=== PATIENT | male | born 1985 | race Caucasian/White ===

== ENCOUNTER → 2018-01-08 | Day surgery (SDC) | payer OTHER ==
[2017-12-18 14:13] VITALS: Ht 167.6 cm; Wt 80.7 kg
--- NOTE | 2017-12-18 14:46 | PAT Medication Instructions ---
Service Date Dec 18, 2017. Current Home Medication List Albuterol Hfa (Ventolin Hfa), 1-2 PUFFS INH UD PRN for PRN Famotidine (Pepcid), 20 MG PO QAM Lamotrigine (Lamictal), 1 TAB PO BID Meloxicam (Mobic), 10 MG PO QPM Pantoprazole (Protonix), 40 MG PO QAM [Vibryd], 40 MG PO QAM Medication Instructions For Your Scheduled Surgery -Contact your surgeon for instructions for: Meloxicam (Mobic), 10 MG PO QPM - Take the following medications the morning of surgery with a sip of water: [Vibryd], 40 MG PO QAM Pantoprazole (Protonix), 40 MG PO QAM Lamotrigine (Lamictal), 1 TAB PO BID Albuterol Hfa (Ventolin Hfa), 1-2 PUFFS INH UD PRN for PRN Famotidine (Pepcid), 20 MG PO QAM - Take the following medications as scheduled the night before surgery: Lamotrigine (Lamictal), 1 TAB PO BID Albuterol Hfa (Ventolin Hfa), 1-2 PUFFS INH UD PRN for PRN Famotidine (Pepcid), 20 MG PO QAM If you have any questions please call us at [phone] or [phone] or [phone]
[2017-12-18 16:28] LABS: BASO ABS # 0.06 K/uL (0-0.2); EOS % 3.2 %; EOS ABS # 0.19 K/uL (0-0.5); HEMATOCRIT 42.6 % (37-47); HEMOGLOBIN 14.1 g/dL (12.0-16.0); IG# 0.01 K/uL (0.00-0.02); LYMPH % 30.3 %; LYMPH ABS # 1.77 K/uL (1.2-3.4); MEAN CELL VOLUME 78.6 fL (80-100); MEAN CORPUSCULAR HGB CONC 33.1 g/dl (32-36); MEAN PLATELET VOLUME 9.8 fL (7.4-10.4); MONO % 10.9 %; MONO ABS # 0.64 K/uL (0.11-0.59); NEUT % 54.4 %; NEUT ABS # 3.18 K/uL (1.4-6.5); PLATELET COUNT 203 K/uL (130-400); RED CELL DISTRIBUTION WIDTH CV 14.3 % (11.5-14.5); WHITE BLOOD COUNT 5.85 K/uL (4.8-10.8)
[2017-12-18 16:36] LABS: CREATININE 0.85 mg/dl (0.60-1.20)
[~2018-01-08] VITALS: Ht 167.6 cm; Wt 80.7 kg
[~2018-01-08] MED LIST: BUPIVACAINE 0.5 % 5 MG/1 ML MPF 30ML VIAL ONE; CEFAZOLIN 2000MG IV PUSH 15 ML IV SCH; CLINDAMYCIN 600 MG/54 ML D5W IV SCH; CLINDAMYCIN PHOS 150 MG/ML 2 ML VIAL ONE; FAMO20TA11 PO; FENTANYL CITRATE INJ 50 MCG/1 ML 2 ML VIAL ONE; HYDR-3419 PO; HYDROCODONE/ACETAMIN 5/325MG TAB ONE; KETAMINE HCL INJ 50 MG/ML 10 ML VIAL ONE; LACTATED RINGER'S 1000ML 1,000 ML IV SCH; LIDOCAINE/EPINEPHRINE 1% 20 ML VIAL ONE; LMC/150 PO; MELO7.5T5 PO; MIDAZOLAM HCL 1 MG/ML 2ML VIAL ONE; NURSING VERBAL MED ORDER ONE; PANT40TA PO; PROPOFOL IV EMULSION 10 MG/ML 20 ML VIAL IV ONE; VIBRYD PO; VNTHFA/IN INH
--- NOTE | 2018-01-08 10:08 | History & Physical Bridge - [place] ---
H&P Re-Evaluation Bridge Note: Patient presents for right hallux valgus correction. I have examined the patient , reviewed the History & Physical and in the interval since the performance of the History & Physical I have noted the following changes of clinical significance: No changes noted
--- NOTE | 2018-01-08 10:11 | Discharge Instructions-SurgCtr ---
Discharge Instructions Date of Service Jan 08, 2018. Visit Reason for Visit: Right Foot Hallux Valgus Discharge Discharge Diagnosis / Problem: hallux valgus right foot Discharge Goals Goal(s): Decrease discomfort Activity Recommendations Activity Limitations: as noted below Lifting Limitations: no more than 5 pounds Exercise/Sports Limitations: none Shower/Bathe: keep incision dry Driving or Machine Use: no driving Weightbearing Status: Right weightbearing (as tolerated) Anesthesia . Post Anesthesia Instructions: If you have had General Anesthesia or IV Sedation: * Do not drive today. * Resume driving when surgeon permits. * Do not make important decisions or sign legal documents today. * Call surgeon for: 1. Temperature elevations greater than 101 degrees F. 2. Uncontrollable pain. 3. Excessive bleeding. 4. Persistent nausea and vomiting. 5. Medication intolerance (nausea, vomiting or rash). * For nausea and vomiting use only clear liquids such as: tea, soda, bouillon until nausea subsides, then gradually increase diet as tolerated. * If you have any concerns or questions, call your surgeon's office. If physician is unavailable and it is an emergency, call 911 or go to the nearest emergency room. . Diet Recommendations Home Diet: no limitations Pending Studies Studies pending at discharge: no Medical Emergencies . Who to Call and When: Medical Emergencies: If at any time you feel your situation is an emergency, please call 911 immediately. . Non-Emergent Contact Non-Emergency issues call your: Surgeon Call Non-Emergent contact if: temperature is above 101, your pain is concerning you, wound has increased drainage, wound has increased redness, wound has increased pain, you have any medication questions . . "Provider Documentation" section prepared by Jomar Ro. .
--- NOTE | 2018-01-08 11:17 | [facility] Post Operative Brief Note ---
Immediate Operative Summary Operative Date Jan 08, 2018. Pre-Operative Diagnosis Hallux Valgus Post-Operative Diagnosis Hallux Valgus Procedure(s) Performed DMO for correction hallux valgus Surgeon Jomar Ro DPM Pipe Processor Surgeon(s) None Estimated Blood Loss Minimal Findings Consistent with Post-Op Diagnosis Specimens None Drains None Anesthesia Type General Complication(s) none Disposition Accompanied Pt To Recovery: no Disposition: Recovery Room / PACU
--- NOTE | 2018-01-08 11:34 | Anesthesia Progress Nt - [facility] ---
Anesthesia Post Op Note Date & Time Jan 08, 2018 at 11:34 Vital Signs Pain Intensity: 0 Vital Signs Past 12 Hours Date Time Temp Pulse Resp B/P (MAP) Pulse Ox O2 Delivery O2 Flow Rate FiO2 01/08/18 11:26 73 12 98 01/08/18 11:26 74 12 01/08/18 11:25 114/50 01/08/18 11:21 116/53 01/08/18 11:21 36.9 75 16 116/53 100 Trach Collar 10 01/08/18 08:30 36.9 94 16 131/78 (95) 96 Room Air Notes Mental Status: alert / awake / arousable, participated in evaluation Pt Amnestic to Procedure: Yes Nausea / Vomiting: adequately controlled Pain: adequately controlled Airway Patency, RR, SpO2: stable & adequate BP & HR: stable & adequate Hydration State: stable & adequate Anesthetic Complications: no major complications apparent
[2018-01-08 12:12] VITALS: TEMP 36.7
[2018-01-08 12:43] VITALS: BP 119/75; PULSE 71; O2SAT 95
--- NOTE | 2018-01-09 15:00 | DIAGNOSTIC IMAGING REPORT ---
SURGICNTR FOOT, 2 VIEWS CLINICAL HISTORY: RIGHT FOOT SURGICAL CORRECTION BUNION COMPARISON STUDY: None. FLUOROSCOPY TIME: 18 seconds.. FINDINGS: 4 fluoroscopic spot images of the right foot. Single screw through the osteotomy at the neck of the first metatarsal. The hardware appears intact. IMPRESSION: Fluoroscopy provided for bunion correction within the right foot. Electronically signed by: Alverto Glaser M.D. 01/09/2018 2:58 PM Dictated Date/Time: 01/09/2018 2:54 PM
--- NOTE | 2018-01-12 17:29 | [facility] Operative Report ---
Operative Report Operative Date Jan 12, 2018. Pre-Operative Diagnosis Hallux Valgus Right Post-Operative Diagnosis Right Hallux Valgus Procedure(s) Performed Right DMO for correction hallux valgus Surgeon Jomar Ro DPM Wallpaper Inspector And Shipper Surgeon(s) None Estimated Blood Loss Minimal Specimens None Drains None Anesthesia Type General Complication(s) none Disposition no Recovery Room / PACU Indications Please see last clinical note for full HPI. Patient has faliled .op therapy for hallux valgus. Description of Procedure Patient was taken from preoperative holding and placed in operating on table in normal supine position. He received MAC per anesthesia protocol and a local field block of the right first ray. A time out was performed. Right calf tourniquet was applied. The right foot and ankle were prepped and draped in the usual sterile manner. Tourniquet was inflated. A standard dorsal medial incision was made first sharply and then bluntly. All bleeders were cauterized as appropriate. Dissection was carried into the first interspace where the deep transverse metatarsal ligament was freed and the adductor hallucis tendon was released from the base of proximal phalanx and fibular sesamoid by way of a "j" stroke. Next, a t-shaped capsulotomy was performed exposing the medial metatarsal head. The medial eminence was then resected with the sagittal saw while maintaining the sagittal groove plantarly. A 0.045 K-wire was used as a guide pin and placed in the metatarsal head. A standard Chevron osteotomy cut was made from medial to lateral, transposing the metatarsal head fragment laterally. After appropriate reduction of the intermetatarsal angle, a 0.062 K-wire was placed for temporary fixation of the capital fragment. An Arthrex 3.5 mm cannulated headless compression screw was then placed for permanent fixation in standard AO fashion. Care was taken to ensure that the screw did not violate the joint. Fluoroscopy was used for verification of position, and good triplane position was noted. The overhanging ledge of the osteotomy site was reduced with the sagittal saw and contoured with the power ely. A medial capsulorrhaphy was then performed. Following this, hallux was noted to sit in a rectus position with excellent range of motion and good reduction of the prior deformity. The surgical site was then irrigated with copious amounts of normal saline. The joint capsule was closed using 3-0 Vicryl with [id number] stitches and a running linear stitch. 4-0 Vicryl was then used in a running fashion to close the subcutaneous tissue. Skin closure was performed using 4-0 nylon. There was noted to be good capillary refill time in all digits following the procedure. Steri strips and a dry sterile dressing was applied. Tourniquet was deflated. The patient tolerated the procedure and anesthesia very well and left the operating room with vital signs stable and neurovascular status grossly intact. After a period of postoperative monitoring, the patient will be discharged home per same-day criteria with instructions for post operative care. I attest to the content of the Intraoperative Record and any orders documented therein. Any exceptions are noted below.
== END | disposition home or self-care (01) ==
LOC: EDSEX 08:15 → X.SURG 08:26
PROVIDERS: ATTEND Podiatrist
DX: M20.11 Hallux valgus (acquired), right foot (principal); M21.611 Bunion of right foot; Z88.0 Allergy status to penicillin; Z88.1 Allergy status to other antibiotic agents; M19.90 Unspecified osteoarthritis, unspecified site